=== PATIENT | female | born 1955 | race Caucasian/White ===

== ENCOUNTER 2022-02-21 19:45 | Emergency (ER) | payer MEDICARE, OTHER ==
[2022-02-21] MEDS ORDERED: LISINOPRIL10 MG PO (20:45)
== END 2022-02-21 20:47 | disposition home or self-care (01) ==
LOC: FER 19:45
DX: S63.615A Unspecified sprain of left ring finger, initial encounter (principal); S60.042A Contusion of left ring finger without damage to nail, initial encounter; W23.0XXA Caught, crushed, jammed, or pinched between moving objects, initial encounter; Y93.67 Activity, basketball; Y92.009 Unspecified place in unspecified non-institutional (private) residence as the place of occurrence of the external cause
CPT/HCPCS: 73130